=== PATIENT | male | born 2000 | race Caucasian/White ===

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

== ENCOUNTER 2024-10-13 00:54 | Observation (INO) ==
[2024-10-13] MEDS: Magnesium Sulfate 2 gm BAG 2 GM/50 ML BAG IVPB ONE (05:14)
[2024-10-13 05:31] LABS: ABS Lymphocytes 1.6 10^3/uL (1.0-4.8); ABS Monocytes 0.9 10^3/uL (0.0-1.1); ABS Neutrophils 7.7 10^3/uL (1.5-7.6); ABS Nucleated RBC 0.01 10^3/ul; Eosinophil % 0.1 %; Hematocrit 41.4 % (38-53); Hemoglobin 14.5 g/dL (13.2-16.3); Lymphocyte % 15.2 %; Mean Corpuscular Hemoglobin 29.3 pg (27-33); Mean Corpuscular Hgb Conc 35.1 g/dL (31-36); Mean Corpuscular Volume 83.5 fL (80-97); Mean Platelet Volume 9.6 fL (7.5-11.2); Nucleated Red Blood Cells % 0.1 %/100WBC (0.0-0.8); Platelet Count 257 10^3/uL (150-450); Red Blood Count 4.96 10^6/uL (4.06-5.63); Red Cell Distribution Width 13.4 % (12-17); White Blood Count 10.3 10^3/uL (3.6-10.2)
[2024-10-13 05:44] LABS: Rapid Strep Molecular Negative (Negative)
[2024-10-13 05:56] LABS: C Reactive Protein 3.05 mg/L (<8.01); Calcium 9.6 mg/dL (8.6-10.3); Creatinine, Serum 0.75 mg/dL (0.67-1.17); Potassium 3.6 mmol/L (3.5-5.0); eGFR CKD-EPI 130.9 (>60)
[2024-10-13] MEDS: Lactated Ringers 1000 ml BAG 1,000 ML IV ONE (06:15)
[2024-10-13] MEDS: Dexamethasone IV 4 MG/ML VIAL 1 ml VIAL IV SLOW PU ONE (08:17)
[2024-10-13] MEDS: Famotidine IV 10 MG/ML 2 ml VIAL (20 mg) IV SLOW PU ONE ×2 (08:17→15:44)
[2024-10-13 08:24] LABS: TSH Ultra Thyroid Stim Horm 0.36 mcIU/mL (0.34-5.60)
[2024-10-13 10:07] LABS: Free T4 0.79 ng/dL (0.61-1.12)
[2024-10-13] MEDS: Iohexol 350 (CONTRAST) 500 ML MDV IV ONE (13:12)
[2024-10-13] MEDS: Azithromycin 500 mg/250 ml NS 500 MG/250 ML BAG IVPB ONE (17:04)
[2024-10-13] MEDS: NS 0.9% 1000 ml BAG 1,000 ML IV SCH (17:31)
[2024-10-13] MEDS: Polyethylene Glycol 3350 17 GM PACKET PO SCH (18:44)
[2024-10-13] MEDS: Famotidine IV 10 MG/ML 2 ml VIAL (20 mg) IV SLOW PU SCH (21:53)
[2024-10-14 11:37] VITALS: BP 121/66
[2024-10-14] MEDS ORDERED: Azithromycin 500 mg/250 ml NS 500 MG/250 ML BAG IVPB SCH (17:00)
[2024-10-17 14:08] LABS: Bordetella Pertussis IgG PT Positive (Negative); Bordetella Pertussis Value >200.00 IU/mL
== END 2024-10-14 11:31 | disposition home or self-care (01) ==
LOC: ED 00:54 → EDHOLD 00:54
PROVIDERS: ADMIT Internal Medicine; ATTEND Internal Medicine